=== PATIENT | female | born 1950 | race Two or more races ===

== ENCOUNTER 2018-09-21 08:56 | Outpatient (CLI) | payer OTHER ==
[~2018-09-21] VITALS: Ht 157.5 cm; Wt 60.3 kg
== END 2018-09-21 09:10 | disposition home or self-care (01) ==
LOC: OFIC 805 08:56
DX: K11.7 Disturbances of salivary secretion (principal); J30.89 Other allergic rhinitis; R09.81 Nasal congestion; G50.1 Atypical facial pain

== ENCOUNTER 2018-11-06 08:04 | Outpatient (CLI) | payer OTHER ==
[~2018-11-06] VITALS: Ht 152.4 cm; Wt 60.3 kg
== END 2018-11-06 08:20 | disposition home or self-care (01) ==
LOC: OFIC 805 08:04
DX: J31.0 Chronic rhinitis (principal); R09.81 Nasal congestion; K11.7 Disturbances of salivary secretion

== ENCOUNTER 2019-01-08 08:46 | Outpatient (CLI) | payer OTHER ==
[~2019-01-08] VITALS: Ht 152.4 cm; Wt 63.5 kg
== END 2019-01-08 09:00 | disposition home or self-care (01) ==
LOC: OFIC 805 08:46
DX: R09.81 Nasal congestion (principal); J30.89 Other allergic rhinitis; J32.8 Other chronic sinusitis; G50.1 Atypical facial pain

== ENCOUNTER 2019-03-05 11:15 | Outpatient (CLI) | payer OTHER ==
[~2019-03-05] VITALS: Ht 152.4 cm; Wt 59.0 kg
== END 2019-03-05 11:30 | disposition home or self-care (01) ==
LOC: OFIC 805 11:15
DX: J32.8 Other chronic sinusitis (principal); G50.1 Atypical facial pain; R09.81 Nasal congestion; K11.7 Disturbances of salivary secretion; J30.89 Other allergic rhinitis; R49.0 Dysphonia; R05 Cough

== ENCOUNTER 2022-01-25 09:37 | Outpatient (CLI) | payer OTHER | END 2022-01-25 09:39 | disposition home or self-care (01) | LOC: MAMO-SONO 09:37 | PROVIDERS: ATTEND Obstetrics & Gynecology | DX: N60.11 Diffuse cystic mastopathy of right breast (principal); N60.12 Diffuse cystic mastopathy of left breast ==

== ENCOUNTER 2023-07-15 08:35 | Outpatient (CLI) | payer OTHER | END 2023-07-15 08:41 | disposition home or self-care (01) | LOC: RAD 08:35 | PROVIDERS: ATTEND Physical Medicine & Rehabilitation | DX: M54.59 Other low back pain (principal); Z91.013 Allergy to seafood; Z91.041 Radiographic dye allergy status ==

== ENCOUNTER 2023-09-01 07:10 | Outpatient (CLI) | payer OTHER | END 2023-09-01 07:15 | disposition home or self-care (01) | LOC: NUCLEAR 07:10 | PROVIDERS: ATTEND Physical Medicine & Rehabilitation | DX: M06.4 Inflammatory polyarthropathy (principal) | CPT/HCPCS: 78315; A9503 ==

== ENCOUNTER 2024-04-03 13:29 | Outpatient (CLI) | payer OTHER ==
[2024-04-04] MEDS ORDERED: DILTIAZEM ER120 M2 PO (14:12)
[2024-04-04] MEDS ORDERED: NEXIUM 24HR20 M1 PO (14:12)
[2024-04-04] MEDS ORDERED: ENDOMETRIN100 MG VAG (14:13)
== END 2024-04-03 13:35 | disposition home or self-care (01) ==
LOC: RAD 13:29
PROVIDERS: ATTEND Surgery
DX: K64.2 Third degree hemorrhoids (principal); K64.3 Fourth degree hemorrhoids; N81.4 Uterovaginal prolapse, unspecified; K57.30 Diverticulosis of large intestine without perforation or abscess without bleeding

== ENCOUNTER 2024-04-11 05:52 | Day surgery (SDC) | payer OTHER ==
[~2024-04-11] VITALS: Ht 157.5 cm; Wt 61.2 kg
[~2024-04-11 05:52] MED LIST: DILTIAZEM ER120 M2 PO; ENDOMETRIN100 MG VAG; NEXIUM 24HR20 M1 PO
[2024-04-11] MEDS ORDERED: CEFTRIAXONE SODIUM 2,000 MG in 0.9 % SODIUM CHLORIDE 50 ML IV ONE (10:30)
[2024-04-11] MEDS ORDERED: HEMOSTATIC MATRIX 1 KIT KIT TOP ONE (10:30)
[2024-04-11] MEDS ORDERED: METRONIDAZOLE/SODIUM CHLORIDE 200 ML IV ONE (10:30)
[2024-04-11] MEDS ORDERED: LIDOCAINE HCL 1%/EPINEPHRINE 20ML VIAL IJ ONE (10:30)
[2024-04-11] MEDS ORDERED: CHLORHEXIDINE GLUCONATE 120 ML BOTTLE TP ONE (10:30)
[2024-04-11] MEDS ORDERED: DIBUCAINE 30 GM TUBE RC ONE (10:30)
[2024-04-11] MEDS ORDERED: BUPIVACAINE HCL 30 ML VIAL IJ ONE (10:30)
[2024-04-11] MEDS ORDERED: BUPIVACAINE LIPOSOME/PF 266 MG/20 ML VIAL IJ ONE (11:30)
[2024-04-11] MEDS ORDERED: NEURONTIN300 MG PO (13:21)
[2024-04-11] MEDS ORDERED: CELECOXIB200 MG PO (13:21)
== END 2024-04-11 17:40 | disposition home or self-care (01) ==
LOC: CIR.AMB 05:52
PROVIDERS: ATTEND Surgery
DX: K64.2 Third degree hemorrhoids (principal); K64.3 Fourth degree hemorrhoids; N81.4 Uterovaginal prolapse, unspecified; K57.30 Diverticulosis of large intestine without perforation or abscess without bleeding; Z91.041 Radiographic dye allergy status; Z91.013 Allergy to seafood

== ENCOUNTER 2025-07-15 07:50 | Outpatient (CLI) | payer OTHER ==
[~2025-07-15 07:50] MED LIST changes: +CELECOXIB200 MG PO; +NEURONTIN300 MG PO
== END 2025-07-15 07:58 | disposition home or self-care (01) ==
LOC: TOM 07:50
PROVIDERS: ATTEND Specialist
DX: R10.20 Pelvic and perineal pain unspecified side (principal); K57.91 Diverticulosis of intestine, part unspecified, without perforation or abscess with bleeding
CPT/HCPCS: 74178; Q9965

== ENCOUNTER 2025-08-16 10:00 | Outpatient (CLI) | payer OTHER | END 2025-08-16 10:10 | disposition home or self-care (01) | LOC: RAD 10:00 | PROVIDERS: ATTEND Physical Medicine & Rehabilitation | DX: M25.561 Pain in right knee (principal); M25.562 Pain in left knee ==